=== PATIENT | male | born 1980 | race Caucasian/White ===

== ENCOUNTER → 2024-03-29 | Outpatient (CLI) | payer BC ==
[2024-03-29 08:54] LABS: BASO # 0.04 K/mm3 (0.02-0.10); EOS % 3.4 % (0.0-4.0); HEMOGLOBIN 14.3 g/dL (13.5-18.0); LYMPH# 2.01 K/mm3 (1.50-4.00); MEAN CELL VOLUME 89 fl (78-100); MEAN CORPUSCULAR HEMOGLOBIN 30 pg (27-31); MEAN CORPUSCULAR HGB CONC 34 g/dL (33-37); MEAN PLATELET VOLUME 9.3 fl (7.4-10.4); PLATELET COUNT 358 K/mm3 (130-400); RED BLOOD COUNT 4.71 M/mm3 (4.20-5.60); RED CELL DISTRIBUTION WIDTH 11.8 % (11.5-14.5); WHITE BLOOD COUNT 5.9 K/mm3 (4.8-10.8)
[2024-03-29 09:57] LABS: ALBUMIN 4.6 g/dL (3.5-5.0)
[2024-03-29 09:58] LABS: CALCIUM 9.7 mg/dL (8.3-10.5)
[2024-03-29 09:59] LABS: TOTAL PROTEIN 7.4 g/dL (6.4-8.3)
[2024-03-29 10:01] LABS: TOTAL BILIRUBIN 0.6 mg/dL (0.2-1.2)
== END ==
LOC: LAB 08:26
PROVIDERS: Physician Assistant
DX: Z13.29 Encounter for screening for other suspected endocrine disorder (principal); Z12.5 Encounter for screening for malignant neoplasm of prostate; Z13.1 Encounter for screening for diabetes mellitus; K90.9 Intestinal malabsorption, unspecified; E78.5 Hyperlipidemia, unspecified

== ENCOUNTER → 2024-05-18 | Outpatient (CLI) | payer BC | LOC: RAD 06:59 | DX: N50.812 Left testicular pain (principal) ==

== ENCOUNTER → 2024-06-13 | Day surgery (SDC) | payer BC | LOC: MSO 08:44 | DX: Z12.11 Encounter for screening for malignant neoplasm of colon (principal); Z80.0 Family history of malignant neoplasm of digestive organs; Z83.719 Family history of colon polyps, unspecified | CPT/HCPCS: 00812; J2704; J7120 ==

== ENCOUNTER 2024-07-14 18:00 | Emergency (ER) | payer BC ==
[~2024-07-14] VITALS: Ht 177.8 cm; Wt 97.7 kg
[2024-07-14 19:09] VITALS: BP 124/67
== END 2024-07-14 19:10 | disposition home or self-care (01) ==
LOC: ED 18:00
DX: S61.012A Laceration without foreign body of left thumb without damage to nail, initial encounter (principal); W26.8XXA Contact with other sharp object(s), not elsewhere classified, initial encounter; Y92.009 Unspecified place in unspecified non-institutional (private) residence as the place of occurrence of the external cause

== ENCOUNTER → 2025-01-10 | Outpatient (CLI) | payer BC ==
[2025-01-10 07:10] LABS: BASO # 0.04 K/mm3 (0.02-0.10); EOS % 3.6 % (0.0-4.0); HEMATOCRIT 42.7 % (42.0-52.0); HEMOGLOBIN 14.2 g/dL (13.5-18.0); LYMPH# 2.43 K/mm3 (1.50-4.00); MEAN CELL VOLUME 90 fl (78-100); MEAN CORPUSCULAR HEMOGLOBIN 30 pg (27-31); MEAN CORPUSCULAR HGB CONC 33 g/dL (33-37); MEAN PLATELET VOLUME 9.6 fl (7.4-10.4); MONO # 0.81 K/mm3 (0.20-0.80); NEU # 4.75 K/mm3 (1.40-6.50); PLATELET COUNT 350 K/mm3 (130-400); RED BLOOD COUNT 4.74 M/mm3 (4.20-5.60); RED CELL DISTRIBUTION WIDTH 12.3 % (11.5-14.5); WHITE BLOOD COUNT 8.3 K/mm3 (4.8-10.8)
[2025-01-10 07:13] LABS: ALBUMIN 4.6 g/dL (3.5-5.0)
[2025-01-10 07:14] LABS: CALCIUM 9.7 mg/dL (8.3-10.5)
[2025-01-10 07:16] LABS: TOTAL PROTEIN 7.7 g/dL (6.4-8.3)
[2025-01-10 07:18] LABS: TOTAL BILIRUBIN 0.7 mg/dL (0.2-1.2)
== END ==
LOC: LAB 06:52
PROVIDERS: Physician Assistant
DX: Z12.5 Encounter for screening for malignant neoplasm of prostate (principal); Z13.1 Encounter for screening for diabetes mellitus; Z13.29 Encounter for screening for other suspected endocrine disorder; E78.5 Hyperlipidemia, unspecified; K90.9 Intestinal malabsorption, unspecified